=== PATIENT | male | born 1980 | race Caucasian/White ===

== ENCOUNTER 2017-06-14 14:29 | Emergency (ER) | payer SELFPAY ==
--- NOTE | 2017-06-14 14:39 | CPEKG ---
Heart Rate: 86 RR Interval: 698 P-R Interval: 184 QRSD Interval: 104 QT Interval: 376 QTC Interval: 450 P [place]: 62 QRS [place]: -54 T Wave [place]: 4 EKG Severity - ABNORMAL ECG - EKG Impression: SINUS RHYTHM EKG Impression: LAD, CONSIDER LEFT ANTERIOR FASCICULAR BLOCK Electronically Signed By: Caio Garcia 14-Jun-2017 17:41:31
[2017-06-14 14:48] LABS: PLATELET COUNT 269 10^3/uL (150-400)
[2017-06-14] MEDS ORDERED: LORazepam 1 MG TAB PO ONE (15:08)
--- NOTE | 2017-06-14 15:08 | EDPHY ---
H & P Time Seen by Provider: 06/14/17 14:30 HPI/ROS: Chief complaint. Chest pain HPI. 36-year-old male here by EMS with chest pain. Chest discomfort began after an argument with his boss. He has pressure and sharp left anterior chest discomfort. Some shortness of breath some nausea vomiting. He also had numbness to his face and hands. He had similar episode 1 week ago with emotion. He has no symptoms with exertion or breathing however. About 8 or 9 years ago he was told that he had an enlarged heart but has never had any problem with it. No fever cough. No unusual leg pain or swelling ROS Constitutional. no fever/chills, no weakness Eyes. no problems with vision ENT. no sore throat, no nasal drainage Cardiovascular. Chest pain Respiratory. Shortness of breath Abdominal. Nausea and vomiting . no problems urinating MS. no calf pain/swelling, no neck/back pain, no joint pain Skin. no rash Lymph. no swollen glands Neuro. Paresthesias Past Medical/Surgical History: Enlarged heart, migraines Family history father possibly had heart disease but is estranged to the family Social History: , nonsmoker, no alcohol Smoking Status: Never smoked Physical Exam: General Appearance: Alert tearful well-developed male mild distress vital signs are stable Eyes: Pupils equal and round no pallor or injection. ENT, Mouth: Mucous membranes are moist. Respiratory: There are no retractions, lungs are clear to auscultation. Cardiovascular: Regular rate and rhythm. Gastrointestinal: Abdomen is soft and nontender, no masses, bowel sounds normal. Neurological: Awake and alert, sensory and motor exams grossly normal. Skin: Warm and dry, no rashes. Musculoskeletal: Neck is supple nontender. Extremities symmetrical, full range of motion. Psychiatric: Patient is oriented X 3, there is no agitation. Constitutional: Initial Vital Signs Temperature (C) 36.9 C 06/14/17 14:34 Heart Rate 73 06/14/17 14:34 Respiratory Rate 14 06/14/17 14:34 Blood Pressure 146/94 H 06/14/17 14:34 O2 Sat (%) 98 06/14/17 14:34 O2 Delivery Mode Room Air Allergies/Adverse Reactions: No Known Allergies Allergy (Unverified 06/14/17 14:34) Home Medications: Medication Instructions Recorded Excedrin Extra Strength Caplet 06/14/17 Medical Decision Making - Diagnostics EKG Interpretation: EKG interpreted by me shows normal sinus rhythm normal interval. Left axis deviation. QRS is otherwise normal the possible left anterior fascicular block. No significant ST elevation or depression. No arrhythmia. The rate is 86 Imaging Results: Imaging Impressions Chest X-Ray 06/14/17 14:40 Impression: Negative chest. Procedures: IV normal saline monitor. Ativan orally ED Course/Re-evaluation: Re-evaluation at 4:00 p.m. And patient tells me he has no chest discomfort is feeling much better. Re-evaluation again at 5:10 p.m.. No further chest discomfort. 2nd troponin is normal. Patient is pain-free. The patient, his , and I discussed imaging and lab an EKG findings. We discussed treatment plan including criteria for return importance of follow-up and further evaluation. They expressed understanding and agreement Differential Diagnosis: I think this emotional upset causing chest discomfort. It sounds like he was hyperventilating as well. Serial troponins are normal. No evidence for acute coronary syndrome. - Data Points Laboratory Results: Laboratory Results 06/14/17 14:39 06/14/17 14:39 06/14/17 06/14/17 06/14/17 16:33 14:39 14:39 WBC 8.60 10^3/uL 10^3/uL (3.80-9.50) RBC 5.98 10^6/uL 10^6/uL (4.40-6.38) Hgb 18.6 g/dL H g/dL (13.7-17.5) Hct 52.0 % H % (40.0-51.0) MCV 87.0 fL fL (81.5-99.8) MCH 31.1 pg pg (27.9-34.1) MCHC 35.8 g/dL g/dL (32.4-36.7) RDW 12.7 % % (11.5-15.2) Plt Count 269 10^3/uL 10^3/uL (150-400) MPV 11.0 fL fL (8.7-11.7) Neut % (Auto) 47.1 % % (39.3-74.2) Lymph % (Auto) 40.8 % % (15.0-45.0) [place] % (Auto) 9.5 % % (4.5-13.0) Eos % (Auto) 1.7 % % (0.6-7.6) Baso % (Auto) 0.6 % % (0.3-1.7) Nucleat RBC Rel Count 0.0 % % (0.0-0.2) Absolute Neuts (auto) 4.04 10^3/uL 10^3/uL (1.70-6.50) Absolute Lymphs (auto) 3.51 10^3/uL H 10^3/uL (1.00-3.00) Absolute Monos (auto) 0.82 10^3/uL H 10^3/uL (0.30-0.80) Absolute Eos (auto) 0.15 10^3/uL 10^3/uL (0.03-0.40) Absolute Basos (auto) 0.05 10^3/uL 10^3/uL (0.02-0.10) Absolute Nucleated RBC 0.00 10^3/uL 10^3/uL (0-0.01) Immature Gran % 0.3 % % (0.0-1.1) Immature Gran # 0.03 10^3/uL 10^3/uL (0.00-0.10) Sodium 141 mEq/L mEq/L (135-145) Potassium 3.9 mEq/L mEq/L (3.5-5.2) Chloride 103 mEq/L mEq/L (97-110) Carbon Dioxide 22 mEq/l mEq/l (22-31) Anion Gap 16 mEq/L mEq/L (8-16) BUN 12 mg/dL mg/dL (7-23) Creatinine 0.9 mg/dL mg/dL (0.7-1.3) Estimated GFR > 60 Glucose 83 mg/dL mg/dL (70-100) Calcium 10.1 mg/dL mg/dL (8.5-10.4) Troponin I < 0.012 ng/mL ng/mL < 0.012 ng/mL ng/mL (0.000-0.034) (0.000-0.034) Medications Given: Discontinued Medications Lorazepam (Ativan) 1 mg PO EDNOW ONE Stop: 06/14/17 15:09 Last Admin: 06/14/17 15:32 Dose: 1 mg Departure - Departure Disposition: Home, Routine, Self-Care Clinical Impression: Chest pain Qualifiers: Chest pain type: other chest pain Qualified Code(s): R07.89 - Other chest pain ; R07.8 - Other chest pain Condition: Good Instructions: Chest Pain (ED) Additional Instructions: Easy activity. Return for worsening chest discomfort or trouble breathing. Make a follow-up appointment with Cardiology for further evaluation of your heart. Referrals: Patient,NotPresent [Unknown] - As per Instructions Issa Morgan MD [Medical Doctor] - 2-3 days, call for appt.
[2017-06-14 17:27] VITALS: BP 141/89
== END 2017-06-14 17:27 | disposition home or self-care (01) ==
DX: R07.89 Other chest pain (principal)